=== PATIENT | female | born 1990 | race Caucasian/White ===

== ENCOUNTER 2017-10-11 21:40 | Emergency (ER) | payer OTHER ==
[~2017-10-11 21:40] MED LIST: AMOX500 PO; CEPH500 PO; DOXY100 PO; DOXY100T53 PO; Flovent Diskus50 MCG INH; HYDACE5 PO; IBUP600 PO; IBUP800 PO; Imitrex50 MG; KETO10 PO; LORA2 PO; MIRENA; Multivitamin1 EAC1 PO; NEXPLANON68 MG SC; NEXPLANON68 MG SQ; ONDA4 PO; OXYACE5T PO; PROM25 PO; RANI150 PO; RXHYDMOR2 PO; Ranitidine HCl150 M1; SERT100 PO; SLOW RELEASE47.5 MG; SULTRISS PO; SYMPLEX F PO; Verotin-Gr Cap1 EACH PO; [UNRECOGNIZED DRUG - OTHER]
[2017-10-31] MEDS ORDERED: ONDA4 (14:13)
[2017-10-31] MEDS ORDERED: RANI150 (14:13)
[2017-10-31] MEDS ORDERED: Imitrex50 MG (14:13)
[2017-10-31] MEDS ORDERED: FLONASE ALLERG9.9 ML (14:14)
[2017-10-31] MEDS ORDERED: [UNRECOGNIZED DRUG - OTHER] PO (14:15)
[2017-10-31] MEDS ORDERED: GABA100 (14:15)
[2017-10-31] MEDS ORDERED: Voltaren100 GM (14:16)
[2017-12-06] MEDS ORDERED: ONDA4ODT MM (12:23)
[2017-12-06] MEDS ORDERED: Mirena1 EACH VAG (12:24)
[2017-12-06] MEDS ORDERED: SUMA25 PO (12:24)
== END 2017-10-11 22:15 | disposition left against medical advice (07) ==
LOC: ER 21:40
DX: Z53.21 Procedure and treatment not carried out due to patient leaving prior to being seen by health care provider (principal)

== ENCOUNTER 2017-11-07 08:11 | Day surgery (SDC) | payer OTHER ==
[~2017-11-07] VITALS: Ht 177.8 cm; Wt 64.5 kg
[~2017-11-07 08:11] MED LIST changes: +FLONASE ALLERG9.9 ML; +GABA100; +ONDA4; +RANI150; +Voltaren100 GM; +[UNRECOGNIZED DRUG - OTHER] PO
[2017-12-06] MEDS ORDERED: ONDA4ODT MM (12:23)
[2017-12-06] MEDS ORDERED: SUMA25 PO (12:24)
[2017-12-06] MEDS ORDERED: Mirena1 EACH VAG (12:24)
== END 2017-11-07 10:35 | disposition home or self-care (01) ==
LOC: ORSCSDS 08:11
PROVIDERS: Internal Medicine Gastroenterology
PROC: 0DJD8ZZ Inspection of Lower Intestinal Tract, Via Natural or Artificial Opening Endoscopic (ICD-10-PCS; principal; 2017-11-07 09:45)
DX: R10.31 Right lower quadrant pain (principal); K64.8 Other hemorrhoids; F41.8 Other specified anxiety disorders; K21.9 Gastro-esophageal reflux disease without esophagitis; F17.210 Nicotine dependence, cigarettes, uncomplicated; Z79.899 Other long term (current) drug therapy

== ENCOUNTER 2017-12-07 10:13 | Day surgery (SDC) | payer OTHER ==
[~2017-12-07] VITALS: Ht 177.8 cm; Wt 65.8 kg
[~2017-12-07 10:13] MED LIST changes: +Mirena1 EACH VAG; +ONDA4ODT MM; +SUMA25 PO
[2017-12-07] MEDS ORDERED: KETO60I IM (10:36)
== END 2017-12-07 22:46 | disposition home or self-care (01) ==
LOC: ORSCMMR 10:13 → ORD 11:45 → ORSCMMR 22:46
PROVIDERS: Surgery
PROC: 0DTJ4ZZ Resection of Appendix, Percutaneous Endoscopic Approach (ICD-10-PCS; principal; 2017-12-07 11:45)
DX: K36 Other appendicitis (principal); R10.31 Right lower quadrant pain; F17.210 Nicotine dependence, cigarettes, uncomplicated
CPT/HCPCS: 88304; J0690; J1100; J1170; J2250; J2405; J2710; J3010; J7030; J7120

== ENCOUNTER → 2017-12-31 | Outpatient (CLI) | payer OTHER ==
[~2017-12-31] MED LIST changes: +KETO60I IM
== END ==
LOC: LAB SHORT 16:58 → LAB EV 16:58
DX: R30.0 Dysuria (principal)
CPT/HCPCS: 87086

== ENCOUNTER → 2018-05-13 | Outpatient (CLI) | payer OTHER | END | disposition home or self-care (01) | LOC: LAB EV 14:36 → LAB SHORT 14:36 | DX: L02.415 Cutaneous abscess of right lower limb (principal) | CPT/HCPCS: 87070; 87075; 87077; 87205 ==

== ENCOUNTER → 2018-06-07 | Outpatient (CLI) | payer OTHER ==
[2018-06-07 18:31] LABS: BASOPHILS ABSOLUTE AUTO 0.05 K/mm3 (0.00-0.23); BASOPHILS PERCENT AUTO 1 % (0-2); EOSINOPHILS ABSOLUTE AUTO 0.28 K/mm3 (0.00-0.68); EOSINOPHILS PERCENT AUTO 4 % (0-6); Hematocrit 40.1 % (33.0-51.0); Hemoglobin 13.7 g/dL (11.5-16.0); IMMATURE GRAN ABSOLUTE AUTO 0.01 K/mm3 (0.00-0.10); IMMATURE GRAN PERCENT AUTO 0 % (0-1); LYMPHOCYTES ABSOLUTE AUTO 2.44 K/mm3 (0.84-5.20); LYMPHOCYTES PERCENT AUTO 33 % (21-46); MONOCYTES ABSOLUTE AUTO 0.61 K/mm3 (0.16-1.47); MONOCYTES PERCENT AUTO 8 % (4-13); Mean Corpuscular HGB 30.9 pg (26.0-34.0); Mean Corpuscular HGB Conc 34.2 g/dL (31.5-36.5); Mean Corpuscular Volume 91 fL (80-100); Mean Platelet Volume 10.7 fL (9.1-12.4); NEUTROPHILS ABSOLUTE AUTO 3.94 K/mm3 (1.96-9.15); NEUTROPHILS PERCENT AUTO 54 % (41-73); Platelet Count 230 K/mm3 (150-400); RDW Coefficient Variation 13.7 % (11.7-14.2); RDW Standard Deviation 45.4 fL (35.1-46.3); Red Blood Cell Count 4.43 M/mm3 (3.80-5.20); White Blood Cell Count 7.33 K/mm3 (4.00-11.30)
[2018-06-07 18:55] LABS: Alanine Aminotransfer (ALT/SGP 21 U/L (12-78); Albumin, Blood 4.4 g/dL (3.4-5.0); Albumin/Globulin Ratio 1.2 (0.8-1.8); Alk Phos 70 U/L (40-126); Anion Gap 6 mmol/L (6-16); Aspartate Aminotrans (AST/SGOT 14 U/L (12-37); Bilirubin, Total 0.3 mg/dL (0.1-1.0); Blood Urea Nitrogen 11 mg/dL (8-24); Bun/Creatinine Ratio 13.6 (12.0-20.0); CO2, Blood 28 mmol/L (21-32); Calcium, Blood 9.1 mg/dL (8.5-10.1); Chloride, Blood 102 mmol/L (98-108); Creatinine, Blood 0.81 mg/dL (0.40-1.00); Globulin, Blood 3.7 g/dL (2.2-4.0); Glomerular Filtration Rate >60 (60-); Glucose, Blood 76 mg/dL (70-99); Potassium, Blood 3.6 mmol/L (3.5-5.5); Sodium, Blood 136 mmol/L (136-145); Thyroid Stimulating Hormone 1.705 uIU/mL (0.360-4.800); Total Protein, Blood 8.1 g/dL (6.4-8.2)
[2018-06-07 19:54] LABS: Percent Saturation 11.5 % (15.0-50.0)
== END | disposition home or self-care (01) ==
LOC: LAB SHORT 14:52 → LAB EV 14:52
PROVIDERS: Internal Medicine
DX: L02.415 Cutaneous abscess of right lower limb (principal); D50.9 Iron deficiency anemia, unspecified; E55.9 Vitamin D deficiency, unspecified; R53.83 Other fatigue; R53.81 Other malaise
CPT/HCPCS: 36415; 80053; 82306; 82728; 83540; 83550; 84443; 85025; 87070; 87075; 87205

== ENCOUNTER → 2018-06-18 | Outpatient (CLI) | payer OTHER ==
[2018-06-20 07:12] LABS: HPV 16 Negative (Negative); HPV 18 Negative (Negative); HPV OTHER HR TYPES Negative (Negative)
== END | disposition home or self-care (01) ==
LOC: LAB SHORT 12:30 → LAB 12:30
PROVIDERS: Internal Medicine
DX: Z01.419 Encounter for gynecological examination (general) (routine) without abnormal findings (principal)
CPT/HCPCS: 87624; G0145

== ENCOUNTER → 2018-10-16 | Outpatient (CLI) | payer OTHER | LOC: LAB EV 18:13 → LAB SHORT 18:13 | DX: R31.9 Hematuria, unspecified (principal); R82.998 Other abnormal findings in urine | CPT/HCPCS: 87086 ==

== ENCOUNTER → 2019-05-12 | Outpatient (CLI) | payer OTHER ==
[2019-05-14 12:11] LABS: Antinuclear Antibody Screen Positive (Negative)
[2019-05-15 05:08] LABS: COMPLEMENT C4, SERUM 18 mg/dL (14-44)
[2019-05-16 11:19] LABS: ANA Pattern Homogenous
[2019-05-18 18:05] LABS: RNP ANTIBODIES <0.2 AI (0.0-0.9); SJOGREN'S ANTI-SS-A <0.2 AI (0.0-0.9); SJOGREN'S ANTI-SS-B <0.2 AI (0.0-0.9); SMITH ANTIBODIES <0.2 AI (0.0-0.9)
[2019-05-19 07:07] LABS: ANTI-DSDNA ANTIBODIES <1 IU/mL (0-9); COMPLEMENT C3, SERUM 108 mg/dL (82-167)
== END | disposition home or self-care (01) ==
LOC: LAB SHORT 17:26 → LAB EV 17:26
PROVIDERS: Nurse Practitioner Family
DX: M25.50 Pain in unspecified joint (principal)
CPT/HCPCS: 36415; 85651; 86038; 86039; 86060; 86140; 86160; 86225; 86235

== ENCOUNTER 2020-03-28 19:52 | Emergency (ER) | payer OTHER ==
[~2020-03-28] VITALS: Ht 177.8 cm; Wt 68.0 kg
[2020-03-28 20:28] LABS: BASOPHILS ABSOLUTE AUTO 0.06 K/mm3 (0.00-0.23); BASOPHILS PERCENT AUTO 1 % (0-2); EOSINOPHILS ABSOLUTE AUTO 0.43 K/mm3 (0.00-0.68); EOSINOPHILS PERCENT AUTO 5 % (0-6); Hematocrit 44.2 % (33.0-51.0); Hemoglobin 14.9 g/dL (11.5-16.0); IMMATURE GRAN ABSOLUTE AUTO 0.03 K/mm3 (0.00-0.10); IMMATURE GRAN PERCENT AUTO 0 % (0-1); LYMPHOCYTES ABSOLUTE AUTO 3.05 K/mm3 (0.84-5.20); LYMPHOCYTES PERCENT AUTO 33 % (21-46); MONOCYTES ABSOLUTE AUTO 0.64 K/mm3 (0.16-1.47); MONOCYTES PERCENT AUTO 7 % (4-13); Mean Corpuscular HGB 31.8 pg (26.0-34.0); Mean Corpuscular HGB Conc 33.7 g/dL (31.5-36.5); Mean Corpuscular Volume 94 fL (80-100); NEUTROPHILS ABSOLUTE AUTO 4.98 K/mm3 (1.96-9.15); NEUTROPHILS PERCENT AUTO 54 % (41-73); Platelet Count 246 K/mm3 (150-400); RDW Coefficient Variation 12.1 % (11.7-14.2); RDW Standard Deviation 42.3 fL (35.1-46.3); Red Blood Cell Count 4.69 M/mm3 (3.80-5.20); White Blood Cell Count 9.19 K/mm3 (4.00-11.30)
[2020-03-28 20:50] LABS: Alanine Aminotransfer (ALT/SGP 20 U/L (12-78); Albumin, Blood 3.8 g/dL (3.4-5.0); Albumin/Globulin Ratio 1.1 (0.8-1.8); Alk Phos 70 U/L (50-136); Anion Gap 5 mmol/L (6-16); Aspartate Aminotrans (AST/SGOT 14 U/L (12-37); Bilirubin, Total 0.4 mg/dL (0.1-1.0); Blood Urea Nitrogen 12 mg/dL (8-24); CO2, Blood 26 mmol/L (21-32); Calcium, Blood 8.8 mg/dL (8.5-10.1); Chloride, Blood 107 mmol/L (98-108); Globulin, Blood 3.5 g/dL (2.2-4.0); Glomerular Filtration Rate >60 (60-); Glucose, Blood 107 mg/dL (70-99); Potassium, Blood 4.3 mmol/L (3.5-5.5); Sodium, Blood 138 mmol/L (136-145); Total Protein, Blood 7.3 g/dL (6.4-8.2); Troponin I <0.015 ng/mL (0.000-0.040)
[2020-03-28] MEDS ORDERED: MECL12.5 PO (21:17)
== END 2020-03-28 21:46 | disposition home or self-care (01) ==
LOC: ER 19:52
PROVIDERS: Emergency Medicine
DX: H81.392 Other peripheral vertigo, left ear (principal); R07.9 Chest pain, unspecified; Z88.2 Allergy status to sulfonamides; Z88.1 Allergy status to other antibiotic agents; Z79.899 Other long term (current) drug therapy; F17.210 Nicotine dependence, cigarettes, uncomplicated
CPT/HCPCS: 36415; 80053; 84484; 85025; 85379; 93005; 93010; 96374; 99285-25; J2405

== ENCOUNTER → 2020-12-18 | Outpatient (CLI) | payer OTHER ==
[~2020-12-18] MED LIST changes: +MECL12.5 PO
[2020-12-18 13:59] LABS: Thyroid Stimulating Hormone 1.231 uIU/mL (0.360-4.800)
[2020-12-18 14:04] LABS: Troponin I <0.017 ng/mL (0.000-0.040)
== END | disposition home or self-care (01) ==
LOC: LAB 13:33 → LAB SHORT 13:33
PROVIDERS: Physician Assistant
DX: R07.9 Chest pain, unspecified (principal); R53.83 Other fatigue
CPT/HCPCS: 84443; 84484; 85379

== ENCOUNTER 2023-07-25 06:56 | Inpatient (IN) | payer OTHER ==
[~2023-07-25] VITALS: Ht 177.8 cm; Wt 95.0 kg
[2023-07-25] VITALS (36 sets, daily range): BP systolic 126–187; BP diastolic 62–92
[2023-07-25] MEDS ORDERED: Celexa20 MG PO (07:54)
[2023-07-25] MEDS ORDERED: PRENATAL TABLE1 EAC2 PO (07:54)
[2023-07-25] MEDS ORDERED: VITAMIN D5000 UNIT PO (07:54)
[2023-07-25] MEDS ORDERED: FAMO40 PO (07:55)
[2023-07-25] MEDS ORDERED: ALLEGRA ALLERG180 MG PO (07:55)
[2023-07-25 07:58] LABS: BASOPHILS ABSOLUTE AUTO 0.03 K/mm3 (0.00-0.23); BASOPHILS PERCENT AUTO 0 % (0-2); EOSINOPHILS ABSOLUTE AUTO 0.25 K/mm3 (0.00-0.68); EOSINOPHILS PERCENT AUTO 3 % (0-6); Hematocrit 33.7 % (33.0-51.0); Hemoglobin 11.6 g/dL (11.5-16.0); IMMATURE GRAN PERCENT AUTO 1 % (0-1); LYMPHOCYTES ABSOLUTE AUTO 1.58 K/mm3 (0.84-5.20); LYMPHOCYTES PERCENT AUTO 21 % (21-46); MONOCYTES ABSOLUTE AUTO 0.41 K/mm3 (0.16-1.47); MONOCYTES PERCENT AUTO 5 % (4-13); Mean Corpuscular HGB 31.9 pg (26.0-34.0); Mean Corpuscular HGB Conc 34.4 g/dL (31.5-36.5); Mean Corpuscular Volume 93 fL (80-100); Mean Platelet Volume 9.8 fL (9.1-12.4); NEUTROPHILS ABSOLUTE AUTO 5.29 K/mm3 (1.96-9.15); NEUTROPHILS PERCENT AUTO 69 % (41-73); Platelet Count 234 K/mm3 (150-400); RDW Coefficient Variation 14.4 % (11.7-14.2); RDW Standard Deviation 48.3 fL (35.1-46.3); Red Blood Cell Count 3.64 M/mm3 (3.80-5.20); White Blood Cell Count 7.66 K/mm3 (4.00-11.30)
[2023-07-26] VITALS (7 sets, daily range): BP systolic 127–144; BP diastolic 65–88
[2023-07-26 06:15] LABS: Hematocrit 29.6 % (33.0-51.0); Hemoglobin 10.1 g/dL (11.5-16.0); Mean Corpuscular HGB 31.9 pg (26.0-34.0); Mean Corpuscular HGB Conc 34.1 g/dL (31.5-36.5); Mean Corpuscular Volume 93 fL (80-100); Mean Platelet Volume 9.9 fL (9.1-12.4); Platelet Count 199 K/mm3 (150-400); RDW Coefficient Variation 14.3 % (11.7-14.2); RDW Standard Deviation 48.8 fL (35.1-46.3); Red Blood Cell Count 3.17 M/mm3 (3.80-5.20); White Blood Cell Count 12.63 K/mm3 (4.00-11.30)
[2023-07-26] MEDS ORDERED: IBUP800 PO (07:19)
--- NOTE | 2023-07-26 09:35 | NUR ---
denies any blurry vision, headaches, ruq pain. just has some moder 2+ swelling in feet.
--- NOTE | 2023-07-26 12:36 | NUR ---
Pt. is awake and welcomes my visit. Familiy members were present but soon departed. Baby boy is present. 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 Facilitate a life review and re-establish rapport. Considered matters of aurelio and belief. Prayed with Pt. and gave a blessing over the baby. Pt. verbalized gratitude for the spiritual care visit.
[2023-07-27 08:52] VITALS: BP 141/87
== END 2023-07-27 11:39 | disposition home or self-care (01) | DRG 807 ==
LOC: OBS 06:56 → BC 06:58 → OBS 07:19 → BC 07:23
PROVIDERS: ADMIT Obstetrics & Gynecology
PROC: 10E0XZZ Delivery of Products of Conception, External Approach (ICD-10-PCS; principal; 2023-07-26)
PROC: 10907ZC Drainage of Amniotic Fluid, Therapeutic from Products of Conception, Via Natural or Artificial Opening (ICD-10-PCS; 2023-07-26)
PROC: 4A1HXCZ Monitoring of Products of Conception, Cardiac Rate, External Approach (ICD-10-PCS; 2023-07-26)
PROC: 3E0R3BZ Introduction of Anesthetic Agent into Spinal Canal, Percutaneous Approach (ICD-10-PCS; 2023-07-26)
PROC: 00HU33Z Insertion of Infusion Device into Spinal Canal, Percutaneous Approach (ICD-10-PCS; 2023-07-26)
PROC: 3E033VJ Introduction of Other Hormone into Peripheral Vein, Percutaneous Approach (ICD-10-PCS; 2023-07-26)
DX: O99.824 Streptococcus B carrier state complicating childbirth (principal); Z37.0 Single live birth; O13.4 Gestational [pregnancy-induced] hypertension without significant proteinuria, complicating childbirth; Z3A.39 39 weeks gestation of pregnancy; Z88.1 Allergy status to other antibiotic agents; Z88.8 Allergy status to other drugs, medicaments and biological substances; Z98.890 Other specified postprocedural states; Z79.899 Other long term (current) drug therapy
CPT/HCPCS: 36415; 51702; 85025; 85027; 86850; 86900; 86901; A9270; J0290; J0360; J1885; J2405; J2590; J7120

== ENCOUNTER → 2024-10-02 | Outpatient (CLI) | payer OTHER ==
[~2024-10-02] MED LIST changes: +ALLEGRA ALLERG180 MG PO; +Celexa20 MG PO; +FAMO40 PO; +PRENATAL TABLE1 EAC2 PO; +VITAMIN D5000 UNIT PO
[2024-10-03 14:19] LABS: Adenovirus F 40/41 Not Detected (NOT DETECT); Astrovirus Not Detected (NOT DETECT); Campylobacter Sp Not Detected (NOT DETECT); Cryptosporidium Not Detected (NOT DETECT); Cyclospora Cayetanensis Not Detected (NOT DETECT); E. Coli O157 Not Detected (NOT DETECT); Entamoeba Histolytica Not Detected (NOT DETECT); Enteroaggregative E. coli-EAEC Not Detected (NOT DETECT); Enteropathogenic E. coli-EPEC Not Detected (NOT DETECT); Enterotoxigenic E. coli-ETEC Not Detected (NOT DETECT); Giardia Lamblia Not Detected (NOT DETECT); Norovirus GI/GII Not Detected (NOT DETECT); Plesiomonas Shigelloides Not Detected (NOT DETECT); Salmonella Sp Not Detected (NOT DETECT); Shiga Toxin-prod E. coli-STEC Not Detected (NOT DETECT); Shigella/Enteroin E. coli-EIEC Not Detected (NOT DETECT); Vibrio Cholerae Not Detected (NOT DETECT); Vibrio Sp Not Detected (NOT DETECT); Yersinia Enterocolitica Not Detected (NOT DETECT)
[2024-10-03 14:20] LABS: Rotavirus A Not Detected (NOT DETECT); Sapovirus Detected (NOT DETECT)
== END ==
LOC: LAB 14:25 → LAB SHORT 14:25
PROVIDERS: Chiropractor
DX: R19.7 Diarrhea, unspecified (principal)
CPT/HCPCS: 87507

== ENCOUNTER → 2024-11-26 | Outpatient (CLI) | payer OTHER | LOC: LAB SHORT 15:41 → LAB 15:41 | DX: N30.01 Acute cystitis with hematuria (principal) | CPT/HCPCS: 87077; 87086; 87186 ==